=== PATIENT | male | born 1950 | race Caucasian/White ===

== ENCOUNTER 2020-01-11 12:32 | Inpatient (IN) | payer MEDICARE, OTHER, SELFPAY ==
[2020-01-11] VITALS (12 sets, daily range): BP systolic 157–206; BP diastolic 94–123; PULSE 68–87; RESP 14–20; TEMP 36.3–37.1; O2SAT 88–97; BMI 40.6
--- NOTE | 2020-01-11 13:09 | XRR_ITS ---
PROCEDURE INFORMATION: Exam: XR Chest, 1 View Exam date and time: 01/11/2020 1:10 PM Age: 69 years old Clinical indication: Shortness of breath; Additional info: SOB TECHNIQUE: Imaging protocol: XR of the chest Views: 1 view. COMPARISON: CR Chest 1 [place] [id number] 06/21/2018 2:44 PM FINDINGS: Lungs: There is left mid to lower lung increased opacity. Left lung base is not well seen secondary to overlying soft tissue. Pleural space: Left costophrenic angle is not well seen. Pleural effusion cannot be excluded. Heart/Mediastinum: Unremarkable. No cardiomegaly. Bones/joints: Unremarkable. XR/XR chest 1V portable [id number] IMPRESSION: Increased opacity in the left mid to lower lung field. Differential includes pneumonia, atelectasis, and neoplasm.
--- NOTE | 2020-01-11 13:09 | ECG_ITS ---
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 Measurements Intervals [place] Rate: 81 P: 33 MT: 163 QRS: -15 QRSD: 106 T: 34 QT: 387 QTc: 451 Interpretive Statements SINUS RHYTHM WITH OCCASIONAL SUPRAVENTRICULAR PREMATURE COMPLEXES LOW QRS VOLTAGE IN PRECORDIAL LEADS [QRS DEFLECTION < 1.0 mV IN CHEST LEADS] PATTERN CONSISTENT WITH PULMONARY DISEASE INCOMPLETE RIGHT BUNDLE BRANCH BLOCK [90+ ms QRS DURATION, TERMINAL R IN V1/V2, 40+ ms S IN I/aVL/V4/V5/V6] Compared to ECG 06/21/2018 17:52:04 No significant changes Electronically Signed On 01-12-2020 15:52:03 CDT by Germaine Kruse M.D. [id number]
--- NOTE | 2020-01-11 13:22 | W.ED.ARRPALP ---
HPI - Arrhythmia/Palpitations General: Chief Complaint: Arrhythmia/Palpitations Stated Complaint: HEART PALPS Time Seen by Provider: 01/11/20 13:09 Source: patient Mode of arrival: ambulatory Limitations: no limitations History of Present Illness: HPI narrative: 69-year-old male who states that over the last week he has been having palpitations and felt like his heart is skipping. He states he is also been gaining has increased swelling in his lower legs. Patient is hypertensive as well. He denies any chest pain denies any shortness of breath. Patient's oxygen level here is 88% he states that has been going on for some time. He denies any worsening or improving factors. Denies any vomiting. complaint: skipped beats Associated symptoms: Deny nausea or vomiting Review of Systems Const: Denies: fever(s), chills, body aches or change in appetite Eyes: Denies: blurry vision or eye discomfort ENMT: Denies: throat pain or dental pain Card: Reports: palpitations Resp: Denies: dyspnea GI: Denies: abdominal pain, nausea, vomiting or diarrhea : Denies: dysuria Musc: Denies: neck pain or back pain Skin/Breast: Denies: rash Neuro: Denies: headache(s) Psych: Denies: depression Melecio/Lymph: Denies: easy bruising All/Imm: Denies: urticaria PFSH ED PFSH: Medical History Diabetes Eczema Essential hypertension Generalized anxiety disorder Venous (peripheral) insufficiency Social History Smoking and tobacco status: former smoker Alcohol intake: never Physical Exam Const: COMMON NORMALS: no acute distress, patient oriented x3 and healthy appearing HENMT: COMMON NORMALS: normocephalic and atraumatic HEAD & SCALP: normocephalic and atraumatic Eye: COMMON NORMALS: Equal, round and reactive pupils present and EOMs intact bilaterally PUPIL: Yes Equal, round and reactive pupils present Neck/C-Spine: COMMON NORMALS: full ROM and supple Chest: COMMONS NORMALS: normal inspection of the chest and normal palpation of entire chest wall Resp: COMMON NORMALS: normal respiratory effort, No retractions, No use of accessory muscles and clear to auscultation bilaterally AUSCULTATION: clear to auscultation bilaterally Cardio: COMMON NORMALS: regular rate, regular rhythm and No murmurs present (Cardio) RATE: regular rate RHYTHM: regular rhythm GI: COMMON NORMALS: Normal to inspection, nondistended, normoactive bowel sounds present, Soft to palpation, non-tender and no masses PALPATION: Yes Soft to palpation Extremity: COMMON NORMALS: normal to inspection and full ROM NARRATIVE EXTREMITY EXAM: 2+ edema Neuro: COMMON NORMALS: patient oriented x3, moves all extremities and no focal motor deficits Psych: COMMON NORMALS: mental status grossly normal, Normal thought process present and cooperative THOUGHT PROCESS: Normal thought process present Skin: COMMON NORMALS: no rashes or lesions noted and no wounds GENERAL SKIN EXAM: no rashes or lesions noted Course Vital Signs: Vital signs: Vital Signs Temperature 98.8 F 01/11/20 13:00 Pulse Rate 74 01/11/20 13:00 Respiratory Rate 14 01/11/20 13:00 Blood Pressure 197/107 01/11/20 13:00 Pulse Oximetry 88 L 01/11/20 13:00 MDM - Arrhythmia/Palpitations MDM Narrative: Medical decision making narrative: Patient presents here with hypoxemia likely pneumonia. I spoke to hospitalist and will admit. Patient is requiring oxygen here and patient given IV azithromycin and Rocephin. Patient has been stable while in the ER. Lab Data: Labs: Lab Results 01/11/20 01/11/20 01/11/20 Range/Units 13:35 13:35 13:35 WBC 11.5 H (4.0-10.0) 10^3/ uL RBC 5.88 H (4.1-5.3) 10^6/u L Hgb 17.9 H (11.7-16.6) g/dL Hct 56.4 H (42.0-52.0) % MCV 95.9 H (80-94) fL MCH 30.4 (28.0-34.0) pg MCHC 31.7 (30.0-36.0) g/dL RDW 13.5 (12.1-15.1) % Plt Count 238 (130-400) 10^3/c mm MPV 10.1 (7.4-10.4) fL Neut % (Auto) 72.8 % Lymph % (Auto) 11.4 % [place] % (Auto) 8.6 % Eos % (Auto) 3.6 % Baso % (Auto) 1.2 % Neut # (Auto) 8.41 H (1.8-7.7) 10^3/u L Lymph # (Auto) 1.3 (0.8-4.8) 10^3/u L [place] # (Auto) 1.0 H (0.2-0.9) 10^3/u L Eos # (Auto) 0.4 (0.0-0.8) 10^3/u L Baso # (Auto) 0.1 (0.0-0.1) 10^3/u L Nucleated RBC % (a uto) 0 % Nucleated RBCs # 0.0 /100WBC PT 12.80 (12.1-14.9) SECO NDS INR 0.94 (0.8-1.2) D-Dimer 1.27 H (0-0.59) ug/mIFE U Sodium 140 (136-145) mmol/L Potassium 3.9 (3.5-5.1) mmol/L Chloride 98 (98-107) mmol/L Carbon Dioxide 35 H (22-29) mmol/L Anion Gap 10.9 (5-19) BUN 10 (8-23) mg/dL Creatinine 1.1 (0.7-1.2) mg/dL GFR Calculation 66.8 L (90-130) mL/min Glucose 148 H (65-115) mg/dL Calculated Osmolal ity 289 (285-295) mOsm/k g Calcium 9.8 (8.5-10.5) mg/dL Total Bilirubin 0.4 (0.15-1.2) mg/dL AST 16 (0-40) U/L ALT 32 (0-41) U/L Alkaline Phosphata se 71 (40-130) IU/L Troponin T Baselin e (0-15) ng/L Troponin T 120 Min [place] (0-15) ng/L Delta Troponin T (0-10) ABS# NT-Pro-B Natriuret Pep 169 H (0-125) pg/mL Total Protein 7.2 (6.6-8.7) g/dL Albumin 4.0 (3.5-5.2) g/dL Globulin 3.2 (1.3-4.6) g/dL SARS-CoV-2 Ag (Rap id) (Negative) 01/11/20 01/11/20 01/11/20 Range/Units 13:35 14:06 15:32 WBC (4.0-10.0) 10^3/ uL RBC (4.1-5.3) 10^6/u L Hgb (11.7-16.6) g/dL Hct (42.0-52.0) % MCV (80-94) fL MCH (28.0-34.0) pg MCHC (30.0-36.0) g/dL RDW (12.1-15.1) % Plt Count (130-400) 10^3/c mm MPV (7.4-10.4) fL Neut % (Auto) % Lymph % (Auto) % [place] % (Auto) % Eos % (Auto) % Baso % (Auto) % Neut # (Auto) (1.8-7.7) 10^3/u L Lymph # (Auto) (0.8-4.8) 10^3/u L [place] # (Auto) (0.2-0.9) 10^3/u L Eos # (Auto) (0.0-0.8) 10^3/u L Baso # (Auto) (0.0-0.1) 10^3/u L Nucleated RBC % (a uto) % Nucleated RBCs # /100WBC PT (12.1-14.9) SECO NDS INR (0.8-1.2) D-Dimer (0-0.59) ug/mIFE U Sodium (136-145) mmol/L Potassium (3.5-5.1) mmol/L Chloride (98-107) mmol/L Carbon Dioxide (22-29) mmol/L Anion Gap (5-19) BUN (8-23) mg/dL Creatinine (0.7-1.2) mg/dL GFR Calculation (90-130) mL/min Glucose (65-115) mg/dL Calculated Osmolal ity (285-295) mOsm/k g Calcium (8.5-10.5) mg/dL Total Bilirubin (0.15-1.2) mg/dL AST (0-40) U/L ALT (0-41) U/L Alkaline Phosphata se (40-130) IU/L Troponin T Baselin e 19 H (0-15) ng/L Troponin T 120 Min yamila 18.93 H (0-15) ng/L Delta Troponin T -0.07 L (0-10) ABS# NT-Pro-B Natriuret Pep (0-125) pg/mL Total Protein (6.6-8.7) g/dL Albumin (3.5-5.2) g/dL Globulin (1.3-4.6) g/dL SARS-CoV-2 Ag (Rap id) Negative (Negative) Imaging Data^: CXR: Attestation: I personally reviewed and interpreted this imaging study as follows: My impression: [address] [address] XRay Report Signed Patient: Zion Mishra Unit #: [id number] : 1950 Age/Sex: 69 / M ADM Date: 01/11/20 Loc: ER Room/Bed: Attending Dr: Ordering Provider/Ordering MD: Amanda Ugarte MD Date of Service: 01/11/20 Procedure(s): XR chest 1V portable [id number] Accession Number(s): [id number] Report Number: [id number] PROCEDURE INFORMATION: Exam: XR Chest, 1 View Exam date and time: 01/11/2020 1:10 PM Age: 69 years old Clinical indication: Shortness of breath; Additional info: SOB TECHNIQUE: Imaging protocol: XR of the chest Views: 1 view. COMPARISON: CR Chest 1 [place] [id number] 06/21/2018 2:44 PM FINDINGS: Lungs: There is left mid to lower lung increased opacity. Left lung base is not well seen secondary to overlying soft tissue. Pleural space: Left costophrenic angle is not well seen. Pleural effusion cannot be excluded. Heart/Mediastinum: Unremarkable. No cardiomegaly. Bones/joints: Unremarkable. XR/XR chest 1V portable [id number] IMPRESSION: Increased opacity in the left mid to lower lung field. Differential includes pneumonia, atelectasis, and neoplasm. CT Chest: Attestation: I personally reviewed and interpreted this imaging study as follows: Radiologist's impression: [address] [place] [address] CT Scan Report Signed Patient: Zion Mishra Unit #: [id number] : 1950 Age/Sex: 69 / M ADM Date: 01/11/20 Loc: ER Room/Bed: Attending Dr: Ordering Provider/Ordering MD: Amanda Ugarte MD Date of Service: 01/11/20 Procedure(s): CT angio chest PE protcl [id number] Accession Number(s): [id number] Report Number: [id number] PROCEDURE INFORMATION: Exam: CT Angiography Chest With Contrast Exam date and time: 01/11/2020 2:43 PM Age: 69 years old Clinical indication: Shortness of breath; Prior surgery; Surgery date: 6+ months; Surgery type: Gb; Patient HX: SOB x5 days, irregular hr with may 05 stats, positive d-dimer TECHNIQUE: Imaging protocol: Computed tomographic angiography of the chest with intravenous contrast. 3D rendering: MIP and/or 3D reconstructed images were created by the technologist. Radiation optimization: All CT scans at this facility use at least one of these dose optimization techniques: automated exposure control; mA and/or kV adjustment per patient size (includes targeted exams where dose is matched to clinical indication); or iterative reconstruction. Contrast material: OMNIPAQUE 350; Contrast volume: 95 ml; Contrast route: INTRAVENOUS (IV); COMPARISON: CTA Chest-[place] [id number] 02/29/2016 7:06 PM RADIATION DOSE METRICS: Total DLP (mGy-cm): 586.27 FINDINGS: Pulmonary arteries: Normal. No pulmonary emboli. Aorta: Unremarkable. No aortic aneurysm. No aortic dissection. Lungs: See Heart finding. Pleural space: See Heart finding. Heart: Multivessel atherosclerotic disease which involves the coronary arteries. There is a large pericardial fat pad taking up a large portion of the left lower hemithorax. No pleural effusion. There is consolidation along the pericardial fat pad consistent with atelectasis. Underlying pneumonia cannot be excluded. Lymph nodes: Unremarkable. No enlarged lymph nodes. Gallbladder and bile ducts: The gallbladder has been removed. Bones/joints: Unremarkable. No acute fracture. Soft tissues: Unremarkable. CT/CT angio chest PE protcl [id number] IMPRESSION: 1. There is a large left pericardial fat pad with adjacent atelectasis at the left lung base. Underlying pneumonia cannot be excluded. 2. No evidence for pulmonary embolus. EKG Data^: EKG 1: Attestation: I personally reviewed and interpreted this EKG as follows: EKG interpretation date: 01/11/20 EKG interpretation time: 13:55 Interpretation: nsr hr [address] or t wave abnormalities qrs 86 qtc 412 Other EKG comments: Chest X-Ray 01/11/20 13:09 IMPRESSION: Increased opacity in the left mid to lower lung field. Differential includes pneumonia, atelectasis, and neoplasm. Chest CTA 01/11/20 14:22 IMPRESSION: 1. There is a large left pericardial fat pad with adjacent atelectasis at the left lung base. Underlying pneumonia cannot be excluded. 2. No evidence for pulmonary embolus. Radiation Dose CTDIVOL = (mGy): DLP = 586.27 (mGy-cm) Discharge Plan Discharge Patient Disposition: Admitted As Inpatient Clinical Impression: Pneumonia Qualifiers: Pneumonia type: due to unspecified organism Laterality: left Lung location: lower lobe of lung Qualified Code(s): J18.9 - Pneumonia, unspecified organism Condition: Stable Referrals: Annamaria Duke MD [Primary Care Provider] - Coding Level of Care Code ED Bender Helper for g Fwd Exam Comprehensive
[2020-01-11] MEDS: labetalol 5 mg/mL SDV 20mL 10 MG IVP (13:48)
[2020-01-11 13:50] LABS: Basophils # 0.1 10^3/uL (0.0-0.1); Basophils % 1.2 %; Eosinophils # 0.4 10^3/uL (0.0-0.8); Eosinophils % 3.6 %; Hematocrit 56.4 % (42.0-52.0); Hemoglobin 17.9 g/dL (11.7-16.6); Lymphocytes # 1.3 10^3/uL (0.8-4.8); Lymphocytes % 11.4 %; Mean Corpuscular HGB Conc 31.7 g/dL (30.0-36.0); Mean Corpuscular Hemoglobin 30.4 pg (28.0-34.0); Mean Corpuscular Volume 95.9 fL (80-94); Mean Platelet Volume 10.1 fL (7.4-10.4); Monocytes % 8.6 %; Neutrophils # 8.41 10^3/uL (1.8-7.7); Neutrophils % 72.8 %; Nucleated Red Blood Cells % 0 %; Platelet Count 238 10^3/cmm (130-400); Red Blood Count 5.88 10^6/uL (4.1-5.3); Red Cell Distribution Width 13.5 % (12.1-15.1); White Blood Count 11.5 10^3/uL (4.0-10.0)
[2020-01-11] MEDS: cefTRIAXone 1,000 MG in sodium chloride 0.9% (plus) 50 ML 100 MG IV (14:01)
[2020-01-11] MEDS: azithromycin 500 MG in sodium chloride 0.9% 250 ML 250 MG IV (14:02)
[2020-01-11 14:11] LABS: INR 0.94 (0.8-1.2)
[2020-01-11 14:14] LABS: D Dimer 1.27 ug/mIFEU (0-0.59)
[2020-01-11 14:17] LABS: Alanine Aminotransferase 32 U/L (0-41); Alkaline Phosphatase 71 IU/L (40-130); Anion Gap 10.9 (5-19); Aspartate Amino Transferase 16 U/L (0-40); Blood Urea Nitrogen 10 mg/dL (8-23); Calcium 9.8 mg/dL (8.5-10.5); Carbon Dioxide 35 mmol/L (22-29); Chloride 98 mmol/L (98-107); Globulin 3.2 g/dL (1.3-4.6); Glomerular Filtration Rate 66.8 mL/min (90-130); Glucose 148 mg/dL (65-115); NT Pro B Type Natriuretic Pept 169 pg/mL (0-125); Osmolality Calculated 289 mOsm/kg (285-295); Potassium 3.9 mmol/L (3.5-5.1); Sodium 140 mmol/L (136-145); Total Bilirubin 0.4 mg/dL (0.15-1.2); Total Protein 7.2 g/dL (6.6-8.7)
--- NOTE | 2020-01-11 14:22 | CTR_ITS ---
PROCEDURE INFORMATION: Exam: CT Angiography Chest With Contrast Exam date and time: 01/11/2020 2:43 PM Age: 69 years old Clinical indication: Shortness of breath; Prior surgery; Surgery date: 6+ months; Surgery type: Gb; Patient HX: SOB x5 days, irregular hr with may 05 stats, positive d-dimer TECHNIQUE: Imaging protocol: Computed tomographic angiography of the chest with intravenous contrast. 3D rendering: MIP and/or 3D reconstructed images were created by the technologist. Radiation optimization: All CT scans at this facility use at least one of these dose optimization techniques: automated exposure control; mA and/or kV adjustment per patient size (includes targeted exams where dose is matched to clinical indication); or iterative reconstruction. Contrast material: OMNIPAQUE 350; Contrast volume: 95 ml; Contrast route: INTRAVENOUS (IV); COMPARISON: CTA Chest-Pulmonary Emb [id number] 02/29/2016 7:06 PM RADIATION DOSE METRICS: Total DLP (mGy-cm): 586.27 FINDINGS: Pulmonary arteries: Normal. No pulmonary emboli. Aorta: Unremarkable. No aortic aneurysm. No aortic dissection. Lungs: See Heart finding. Pleural space: See Heart finding. Heart: Multivessel atherosclerotic disease which involves the coronary arteries. There is a large pericardial fat pad taking up a large portion of the left lower hemithorax. No pleural effusion. There is consolidation along the pericardial fat pad consistent with atelectasis. Underlying pneumonia cannot be excluded. Lymph nodes: Unremarkable. No enlarged lymph nodes. Gallbladder and bile ducts: The gallbladder has been removed. Bones/joints: Unremarkable. No acute fracture. Soft tissues: Unremarkable. CT/CT angio chest PE protcl [id number] IMPRESSION: 1. There is a large left pericardial fat pad with adjacent atelectasis at the left lung base. Underlying pneumonia cannot be excluded. 2. No evidence for pulmonary embolus. Radiation Dose CTDIVOL = (mGy): DLP = 586.27 (mGy-cm)
[2020-01-11 14:36] LABS: Troponin(5th) Baseline 19 ng/L (0-15)
--- NOTE | 2020-01-11 15:09 | ECG_ITS ---
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 Measurements Intervals [place] Rate: 86 P: 35 [place]: 150 QRS: -3 QRSD: 105 T: 38 QT: 368 QTc: 442 Interpretive Statements SINUS RHYTHM WITH FREQUENT SUPRAVENTRICULAR PREMATURE COMPLEXES INDETERMINATE AXIS LOW QRS VOLTAGE IN PRECORDIAL LEADS INCOMPLETE RIGHT BUNDLE BRANCH BLOCK INFERIOR MYOCARDIAL INFARCTION , PROBABLY OLD [40+ ms Q WAVE AND/OR ST/T ABNORMALITY IN II/aVF] Compared to ECG 01/11/2020 12:59:26 Indeterminate axis now present Myocardial infarct finding now present Electronically Signed On 01-12-2020 16:42:48 CDT by Germaine Kruse M.D. [id number] f
[2020-01-11 15:27] LABS: SARS Covid-2 Antigen Negative (Negative)
[2020-01-11] MEDS: iohexol 350 mg/mL 100 mL Btl IV (15:46)
[2020-01-11 16:09] LABS: Troponin 5 2HR 18.93 ng/L (0-15)
[2020-01-11 16:13] LABS: Troponin 5 2HR Delta -0.07 ABS# (0-10)
--- NOTE | 2020-01-11 16:29 | ECG_ITS ---
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 Measurements Intervals [place] Rate: 78 P: 39 MS: 144 QRS: -16 QRSD: 110 T: 46 QT: 387 QTc: 441 Interpretive Statements SINUS RHYTHM WITH OCCASIONAL SUPRAVENTRICULAR PREMATURE COMPLEXES LOW QRS VOLTAGE IN PRECORDIAL LEADS [QRS DEFLECTION < 1.0 mV IN CHEST LEADS] INCOMPLETE RIGHT BUNDLE BRANCH BLOCK [90+ ms QRS DURATION, TERMINAL R IN V1/V2, 40+ ms S IN I/aVL/V4/V5/V6] Compared to ECG 01/11/2020 13:55:35 Indeterminate axis no longer present Myocardial infarct finding no longer present Electronically Signed On 01-12-2020 15:50:31 CDT by Germaine Kruse M.D. [id number]
--- NOTE | 2020-01-11 18:32 | P.HP_ITS ---
Providers/Chief Complaint Admitting Physician: Fernando Londono MD Primary Care Provider: Annamaria Duke MD Chief Complaint: HEART PALPS History of Present Illness Zion Mishra is a 69 year old male with past medical history of uncontrolled hypertension, COPD, type 2 diabetes mellitus, eczema on chronic steroids with prednisone 5 to 10 mg for at the least last 5 months presented to the ER today because of occasional palpitations going on for last 4 days. He states he would put on his pulse oximetry and would notice irregular heartbeat with occasional skipped beats. He denies of having any dizziness, nausea, vomiting, confusion, falls, headache, dizziness, flulike symptoms, sick contacts, exposure to COVID- 19 patients. In the ER he was found to be mildly hypoxic so blood work was done which showed elevated d-dimer so CTA chest was done which showed a possible pneumonic patch in left lower zone so hospitalist service was asked to admit. His blood work in the ER showed a white count of 11.5, hemoglobin of 17.9, platelet count 238, d-dimer of 1.27, sodium of 140, carbon dioxide of 35 on BMP, creatinine of 1.1, normal liver function tests, baseline troponin of 19, rapid COVID test was negative. CTA chest was done which showed large left pericardial fat pad with adjacent atelectasis at left lung base with possible underlying pneumonia without any apparent embolism. Review of Systems General: Reports: 10 or more systems reviewed and unremarkable except in HPI and below Const: Denies: fever(s), chills, body aches, change in appetite, change in weight, malaise, night sweats, diaphoresis, change in sleep pattern, daytime sleepiness or snoring Eyes: Denies: change in vision, blurry vision, photophobia, eye discomfort or eye discharge ENMT: Denies: throat pain, enlarged tonsils, hoarseness, mouth pain, oral sores, dry mouth, tinnitus, nasal congestion or post nasal drip Card: Denies: chest pain, palpitations, irregular heart rhythm, edema, swelling of feet/ankles, lightheadedness, syncope, pre-syncope, dyspnea on exertion, orthopnea, leg pain with exertion or acrocyanosis Resp: Denies: dyspnea, productive cough, non-productive cough, wheezing, stridor, pain on inspiration, change in phlegm color, hemoptysis or chest congestion GI: Denies: abdominal pain, nausea, vomiting, hematemesis, coffee ground emesis, dysphagia, heartburn, diarrhea, constipation, bloating, GI cramping, change in bowel habits, pain on defecation, hematochezia or melena : Denies: flank pain, difficulty urinating, dysuria, urinary frequency, urinary urgency, urinary hesitancy, urinary dribbling, difficulty starting urination, change in urine stream, nocturia or hematuria Musc: Denies: neck pain, back pain, extremity pain, joint pain, joint swelling, joint redness, joint stiffness or limited range of motion Neuro: Denies: headache(s), numbness in extremities, weakness in extremities, sensory changes, lack of coordination, difficulty walking, frequent falls, dizziness, vertigo, confusion, Slurred speech present, difficulty communicating thoughts or seizure-like activity Psych: Denies: anxiety, depression, mood swings, panic attacks, hopelessness or irritability Endo: Denies: polyuria, polydipsia, tired all the time, cold intolerance, excessive sweating, flushing or heat intolerance Melecio/Lymph: Denies: easy bruising or easy bleeding All/Imm: Denies: tongue swelling, facial swelling or acute wheezing Medications/Allergies Home Medications Medication Instructions Recorded Confirmed Last Taken Type clonidine HCl 0.3 mg tablet 0.3 mg PO TID 07/17/19 01/11/20 01/11/20 History doxepin 10 mg capsule 10 mg PO BID 07/17/19 01/11/20 Unknown History metoprolol tartrate 100 mg tablet 50 mg PO BID tab 07/17/19 01/11/20 01/11/20 History 25 mg prednisone 10 mg tablet 10 mg PO BID 30 Days #60 tab 07/17/19 01/11/20 01/11/20 Rx 5 mg tamsulosin 0.4 mg capsule 0.4 mg PO DAILY 07/17/19 01/11/20 Unknown History furosemide 40 mg tablet 40 mg PO BID 30 Days #60 tab 09/02/19 01/11/20 01/10/20 Rx potassium chloride 20 mEq 20 meq PO BID 30 Days #60 tab 09/02/19 01/11/20 01/10/20 Rx tablet,extended release albuterol sulfate 90 mcg/actuation 2 puff INHALATION Q6H PRN #8 gm 10/02/19 01/11/20 Unknown Rx aerosol inhaler alprazolam 1 mg tablet 1 mg PO QID PRN 30 Days #95 tab 12/24/19 01/11/20 01/11/20 09:00 Rx nifedipine 30 mg PO BID 01/11/20 01/11/20 01/11/20 History 30 mg Allergies Allergy/AdvReac Type Severity Reaction Status Date / Time No Known Allergies Allergy Verified 01/11/20 13:50 PFSH Acute PFSH: Medical History Diabetes Eczema Essential hypertension Generalized anxiety disorder Venous (peripheral) insufficiency Surgical History (Updated 01/11/20 @ 18:38 by Fernando Londono MD) History of cholecystectomy History of cystoscopy Social History Smoking and tobacco status: former smoker Alcohol intake: never Vitals/I&O/Wt Last Vital Signs Temp 98.8 F 01/11/20 13:00 Pulse 68 01/11/20 17:06 Resp 17 01/11/20 17:06 BP 197/123 01/11/20 17:06 Pulse Ox 91 01/11/20 17:06 Weight last 48 hrs Weight 136.078 kg Physical Exam Narrative: EXAM NARRATIVE: General: No acute distress, AO x3, morbidly obese Skin: Multiple maculopapular rash present on both of his arms and chest without any crusting, secretion or bleeding. HEENT: PERRLA, pupils bilaterally equal and reactive Chest: Normal vesicular breath sounds, no added sounds, equal good air entry bilaterally CVS: S1-S2 regular, no murmurs, no tachycardia, no gallops, no rubs Abdomen: Soft, nontender, no organomegaly, bowel sounds present Neuro: No focal deficits, no facial deformity, AO x3, power 5/5 in all limbs Data : 01/11/20 13:35 01/11/20 13:35 Micro: Microbiology 01/11/20 13:35 Blood Culture - Preliminary Blood SPECIMEN COLLECTED 01/11/20 13:38 Blood Culture - Preliminary Blood SPECIMEN COLLECTED A&P Assessment and plan (1) Essential hypertension: Status: Acute (2) Diabetes: Status: Acute Qualifiers: Diabetes mellitus type: type 2 Diabetes mellitus long term acute care registered nurse insulin use: without long term acute care registered nurse use Diabetes mellitus complication status: without complicati on Qualified Code(s): E11.9 - Type 2 diabetes mellitus without complications (3) Pneumonia: Status: Acute Qualifiers: Laterality: left Lung location: lower lobe of lung Pneumonia type: due to unspecified organism Qualified Code(s): J18.9 - Pneumonia, unspecified org anism (4) Palpitation: Status: Acute (5) Hypoxia: Status: Acute Additional A&P Information Hypoxia due to possible pneumonia: Possible pneumonia on the left side versus atelectasis. Possible pericardial fat versus pleural effusion. Check proBNP, procalcitonin, sputum Gram stain, blood culture, urinalysis, urine culture, lactate, echocardiogram, ultrasound left chest. If pleural effusion is present can consult pulmonology for thoracocentesis. For now start patient on treatment for community-acquired pneumonia with azithromycin and ceftriaxone. DuoNebs every 6 hours. Oxygen supplementation keeping saturation over 90%. Type 2 diabetes mellitus: Insulin sliding scale. Hypertension: Uncontrolled in the past. Continue home medications. Goal blood pressure less than 140/90 mmHg. Palpitations: Cannot rule out A. fib given possible PATRICIA. Telemetry. Most likely should be discharged on event monitor. Eczema: Discussed in detail with patient regarding harmful effects of prednisone for a long time. For now we will hold off. Patient does not seem to be in adrenal crisis as blood pressure is running on the higher side. Full code. Carb consistent cardiac diet. Lovenox for DVT prophylaxis Attestations Medical Necessity Statement*: More than 2 midnights for community-acquired pneumonia, hypoxia, palpitation Time Spent in Patient Care: Greater than 35 minutes Coding Level of Care Code Acute Taker Off for [facility] Fwd Diagnoses Essential hypertension I10 Diabetes E11.9 Diabetes mellitus type: type 2 Diabetes mellitus long term acute care registered nurse insulin use: without fpc use Diabetes mellitus complication status: without complication Pneumonia J18.9 Laterality: left Lung location: lower lobe of lung Pneumonia type: due to unspecified organism Palpitation R00.2 Hypoxia R09.02
--- NOTE | 2020-01-11 18:34 | PC.NURSE ---
PT REPORTS TALKING HALF OF HIS MORNING DOSES OF MEDS ONCE A DAY, AND NOT THE WAY THEY ARE PRESCRIBED. TEACHING DONE ON HIS MEDICATIONS AND WHAT THEY ARE FOR. PT LAUGHS AND VERBALIZES UNDERSTANDING. PT ALSO NOTED TAKING HIS OXYGEN OFF AD JUAN LUIS, THOUGH INSTRUCTED NOT TO TAKE IT OFF.
[2020-01-11] MEDS: hyDRALAzine 20 mg/mL INJ 1 mL 10 MG IVP (18:38)
--- NOTE | 2020-01-11 18:38 | PC.NURSE ---
I reported the high bp to the nurses. 206/107
[2020-01-11] MEDS: potassium chloride ER 10 mEq Tablet 20 MEQ PO (18:56)
[2020-01-11] MEDS: FUROsemide 40 mg Tablet PO (18:56)
[2020-01-11] MEDS: NIFEdipine ER (24 hr) 30 mg Tablet PO (18:56)
[2020-01-11] MEDS: doxepin 10 mg Capsule PO (18:56)
[2020-01-11] MEDS: enoxaparin 40 mg/0.4 mL Syringe SUBCUT (18:56)
[2020-01-11] MEDS: famotidine 20 mg/2 mL INJ IVP (18:56)
--- NOTE | 2020-01-11 19:09 | ECG_ITS ---
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 Measurements Intervals [place] Rate: 86 P: 42 NE: 145 QRS: -24 QRSD: 101 T: -7 QT: 365 QTc: 437 Interpretive Statements SINUS RHYTHM WITH OCCASIONAL SUPRAVENTRICULAR PREMATURE COMPLEXES LOW QRS VOLTAGE IN PRECORDIAL LEADS [QRS DEFLECTION < 1.0 mV IN CHEST LEADS] INCOMPLETE RIGHT BUNDLE BRANCH BLOCK POSSIBLE ANTERIOR MYOCARDIAL INFARCTION, PROBABLY OLD INFERIOR MYOCARDIAL INFARCTION, OF INDETERMINATE AGE Compared to ECG 01/11/2020 15:27:19 Myocardial infarct finding now present Electronically Signed On 01-12-2020 16:38:05 CDT by Germaine Kruse M.D. [id number]
[2020-01-11 19:23] LABS: Influenza A by IFA Negative (Negative); Influenza B by IFA Negative (Negative)
[2020-01-11] MEDS: budesonide 0.5 mg/2 mL Neb INHALATION ×2 (20:39)
[2020-01-11] MEDS: ipratropium-albuterol 3 mL Neb INHALATION (20:39)
[2020-01-11] MEDS: cloNIDine 0.1 mg Tablet 0.3 MG PO (20:44)
[2020-01-11] MEDS: sodium chloride 0.9% 1,000 ML 75 ML IV (20:45)
[2020-01-11 21:00] LABS: Troponin 5 6HR 18.49 ng/L (0-15)
[2020-01-11 21:06] LABS: Troponin 5 6HR Delta -0.51 ng/L (0-12)
[2020-01-11 21:10] LABS: NT Pro B Type Natriuretic Pept 179 pg/mL (0-125); Procalcitonin 0.05 ng/mL (0-0.5)
[2020-01-11 21:11] LABS: Thyroid Stimulating Hormone 2.14 uIU/mL (0.27-4.20)
[2020-01-11 21:21] LABS: Iron 60 ug/dL (59-158)
[2020-01-11 21:51] LABS: Percent Saturation 20.7 % (20-50); Total Iron Binding Capacity 289 mcg/dl; Unsaturated Iron Binding 229 ug/dL (112-347)
[2020-01-12] VITALS (9 sets, daily range): BP systolic 114–169; BP diastolic 65–90; PULSE 85–110; RESP 14–24; TEMP 36.5–37.1; O2SAT 87–93
[2020-01-12 06:26] LABS: Basophils # 0.1 10^3/uL (0.0-0.1); Eosinophils # 0.4 10^3/uL (0.0-0.8); Hematocrit 56.8 % (42.0-52.0); Hemoglobin 18.4 g/dL (11.7-16.6); Lymphocytes # 1.6 10^3/uL (0.8-4.8); Lymphocytes % 13.5 %; Mean Corpuscular HGB Conc 32.4 g/dL (30.0-36.0); Mean Corpuscular Volume 95.8 fL (80-94); Mean Platelet Volume 10.3 fL (7.4-10.4); Monocytes # 1.1 10^3/uL (0.2-0.9); Monocytes % 9.5 %; Neutrophils % 71.3 %; Nucleated Red Blood Cells % 0 %; Platelet Count 227 10^3/cmm (130-400); Red Blood Count 5.93 10^6/uL (4.1-5.3); Red Cell Distribution Width 13.6 % (12.1-15.1)
[2020-01-12] MEDS: famotidine 20 mg/2 mL INJ IVP (06:48)
[2020-01-12 06:50] LABS: Alanine Aminotransferase 33 U/L (0-41); Albumin Level 3.9 g/dL (3.5-5.2); Alkaline Phosphatase 74 IU/L (40-130); Anion Gap 15.1 (5-19); Aspartate Amino Transferase 14 U/L (0-40); Blood Urea Nitrogen 7 mg/dL (8-23); Calcium 8.4 mg/dL (8.5-10.5); Carbon Dioxide 29 mmol/L (22-29); Chloride 97 mmol/L (98-107); Globulin 3.7 g/dL (1.3-4.6); Glomerular Filtration Rate 84.2 mL/min (90-130); Glucose 160 mg/dL (65-115); Osmolality Calculated 285 mOsm/kg (285-295); Potassium 3.1 mmol/L (3.5-5.1); Sodium 138 mmol/L (136-145); Total Bilirubin 0.6 mg/dL (0.15-1.2); Total Protein 7.6 g/dL (6.6-8.7)
--- NOTE | 2020-01-12 07:26 | PC.NURSE ---
sitting up in chair, oxygen tubing found on floor oxygen saturation 90-91% on RA, placed on 2L NC, telemetry placed per physician orders, denies pain, cough, or shortness of breath. discussed plan of care, verbalized understanding, reports, I want to go home. Found 1 tablet of what I believe is potassium on bedside table, placed in appropriate waste. Call light left in reach.
[2020-01-12 07:37] LABS: Estmated Average Glucose 154
[2020-01-12] MEDS: NIFEdipine ER (24 hr) 30 mg Tablet PO (08:29)
[2020-01-12] MEDS: metoprolol tartrate 50 mg Tablet PO (08:30)
[2020-01-12] MEDS: azithromycin 250 mg Tablet 500 MG PO (08:30)
[2020-01-12] MEDS: FUROsemide 40 mg Tablet PO (08:30)
[2020-01-12] MEDS: doxepin 10 mg Capsule PO (08:30)
[2020-01-12] MEDS: potassium chloride ER 10 mEq Tablet 20 MEQ PO (08:31)
[2020-01-12] MEDS: sodium chloride 0.9% 1,000 ML 75 ML IV (08:31)
[2020-01-12] MEDS: cloNIDine 0.1 mg Tablet 0.3 MG PO (08:31)
[2020-01-12] MEDS: tamsulosin 0.4 mg Capsule PO (08:31)
--- NOTE | 2020-01-12 10:33 | PC.CHAP ---
Pastoral Care Encounter/Spiritual Assessment Type of Contact [] Declined nursing techn visit [] Patient/Family/Request visit [] Outpatient visit [] Follow-up visit [] Physician referral [] Code/Alert [x] Routine visit [] Staff referral [] Actively dying [] Patient sleeping [] Family support [] [] Out of room [] Palliative care [] [] Receiving care in room [] Pre-surgical visit [] Trauma [] Long length of stay [] ICU visit [] Other: Relational/Emotional Strength [] Patient feels connected with others/family/visitors/staff [] Distress [] Loneliness/isolation [] Abandonment Spirituality of Patient [] Person of Laura [] Attends Jew of their Laura [] Believes in Prayer [] Reads Bible or Caodaism materials [] There are Spiritual issues to be addressed Medical Concierge Interventions [x] Prayer [x] Active listening [x] Non-anxious presence [x] Spiritual/emotional support [] Crisis/trauma care [] Spiritual counseling [] Bereavement support [] Provided bereavement packet [] Provided Bible/devotional materials [] Provided toy/stuffed animal, coloring book to patient or family member [] Provided Communion [] Anointing/[place] [] Salvation [x] Completed spiritual assessment [] Other: Impact on Illness or Injury [] Angry [] Fearful [] Anxious [] Often cries [] Exhaustion [] Unable to work [] Unable to attend judaism [] Unable to walk/stand [] Unable to read [] Unable to drive [] Unable to eat/drink [] Unable to sleep [] Unable to be with family [] Patient intubated [] Other: Summary patient feeling palps are much better. Time spent with patient 10 min
--- NOTE | 2020-01-12 10:35 | PC.CHAP ---
Pastoral Care Encounter/Spiritual Assessment Type of Contact [] Declined cage manager visit [] Patient/Family/Request visit [] Outpatient visit [] Follow-up visit [] Physician referral [] Code/Alert [x] Routine visit [] Staff referral [] Actively dying [] Patient sleeping [] Family support [] [] Out of room [] Palliative care [] [] Receiving care in room [] Pre-surgical visit [] Trauma [] Long length of stay [] ICU visit [] Other: Relational/Emotional Strength [] Patient feels connected with others/family/visitors/staff [] Distress [] Loneliness/isolation [] Abandonment Spirituality of Patient [] Person of Laura [] Attends Oriental Orthodox of their Laura [] Believes in Prayer [] Reads Bible or Worship materials [] There are Spiritual issues to be addressed Hospital Sales Representative Interventions [x] Prayer [x] Active listening [x] Non-anxious presence [x] Spiritual/emotional support [] Crisis/trauma care [] Spiritual counseling [] Bereavement support [] Provided bereavement packet [] Provided Bible/devotional materials [] Provided toy/stuffed animal, coloring book to patient or family member [] Provided Communion [] Anointing/[place] [] Salvation [x] Completed spiritual assessment [] Other: Impact on Illness or Injury [] Angry [] Fearful [] Anxious [] Often cries [] Exhaustion [] Unable to work [] Unable to attend jain [] Unable to walk/stand [] Unable to read [] Unable to drive [] Unable to eat/drink [] Unable to sleep [] Unable to be with family [] Patient intubated [] Other: Summary Patient understands results of tests, just needs next step... what actions are to be taken Time spent with patient 10 min
--- NOTE | 2020-01-12 13:45 | PM.DCS ---
Discharge Providers Date of Admission: 01/11/20 16:18 Date of Discharge: January 12, 2020 Attending Provider at Admission: Fernando Londono MD Attending Provider at Discharge: Flakito Mcgregor MD Primary Care Provider: Annamaria Duke MD Diagnoses at Discharge Discharge Diagnosis (1) Essential hypertension: Status: Acute (2) Diabetes: Status: Acute Qualifiers: Diabetes mellitus complication status: without complication Diabetes mellitus penitentiary insulin use: without intermediate designer use Diabetes mellitus type: type 2 Qualified Code(s): E11.9 - Type 2 diabetes mellitus without complications (3) Pneumonia: Status: Acute Qualifiers: Laterality: left Lung location: lower lobe of lung Pneumonia type: due to unspecified organism Qualified Code(s): J18.9 - Pneumonia, unspecified organism (4) Palpitation: Status: Acute (5) Hypoxia: Status: Acute Reason for Visit Reason for Visit: HEART PALPS Hospital Course Discharge Summary: This is a 69-year-old male with a past medical history of uncontrolled hypertension, COPD, type 2 diabetes mellitus, eczema on chronic steroids who presents to [facility] due to complaints of irregular heartbeat In the emergency room, patient had a CTA of the chest which did not show any acute embolism, rapid COVID was negative, patient was found to be hypoxic requiring up to 3 L nasal cannula, telemetry had no acute events, EKG shows sinus rhythm with occasional supraventricular premature complexes, incomplete RBBB, low voltage QRS, CTA of the chest showed large left pericardial fat pad with adjacent atelectasis at the left lung base, pneumonia could not be excluded. Given patient's hypoxia, he was admitted for left lower lobe pneumonia Patient was admitted to the general medical floors, received IV hydration, oxygen therapy, antibiotic therapy, clinically improved, denied any significant symptomatology with ambulation, was ready for discharge within 24 hours, culture so far have been unremarkable. Patient was discharged on 5 remaining days of Levaquin, oxygen therapy 3 L nasal cannula, with close follow-up with primary care provider in 1 week. Patient will likely require repeat chest x-ray in 6 months. Patient's COVID-19 testing was negative, influenza negative. Patient was also found to have polycythemia on admission, hemoglobin as high as 18.4, also seen in the past, it is certainly possible that patient's hypoxia could be secondary to chronic COPD although patient states that he quit smoking over 10 years ago, erythropoietin levels are pending, which will require outpatient follow-up and consideration of referral to hematology oncology to evaluate for polycythemia vera For his complaints of irregular heart rate, during his hospital admission, did have episodes of sinus tachycardia, no A. fib events, no chest pain, no lightheadedness, no dizziness, TSH 2.14, BNP 179. On admission patient had no significant ST-T wave changes on EKG, troponins are as high as 18.49, no significant delta troponin, no complaints of chest pain, echocardiogram was overall a poor quality study due to ultrasonic window and body habitus. I have discharged the patient on aspirin, statin, instructions to come back to emergency room if she were to have chest pain, and he will require an outpatient follow-up with his primary care provider. Patient was also discharged on a 2-week event monitor, to monitor for arrhythmia events. Physical Exam Const: COMMON NORMALS: no acute distress and patient oriented x3 HENMT: COMMON NORMALS: normocephalic HEAD & SCALP: normocephalic Neck/C-Spine: COMMON NORMALS: no JVD Resp: COMMON NORMALS: normal respiratory effort, No retractions, No use of accessory muscles and clear to auscultation bilaterally AUSCULTATION: clear to auscultation bilaterally Cardio: COMMON NORMALS: no JVD, regular rate, regular rhythm, S1 normal heart sound present and S2 normal heart sound present RATE: regular rate RHYTHM: regular rhythm HEART SOUNDS: S1 normal heart sound present and S2 normal heart sound present GI: COMMON NORMALS: Normal to inspection, nondistended, normoactive bowel sounds present, Soft to palpation, non-tender, No hepatosplenomegaly present, no masses and no bruits PALPATION: Yes Soft to palpation and Yes No hepatosplenomegaly present Extremity: COMMON NORMALS: capillary refill normal, no clubbing, cyanosis or edema, no calf tenderness and no pedal edema Neuro: COMMON NORMALS: patient oriented x3 Psych: COMMON NORMALS: mental status grossly normal Discharge Data Data Completed and Pending: Completed Studies During Hospitalization Category Date Time Status CT angio chest PE protcl [id number] Urge nt Cat Scan 01/11/20 14:22 Completed XR chest 1V josh ble [id number] Stat Exams 01/11/20 13:09 Completed CV echo complete* [id number] Routine Ultrasound 01/12/20 18:38 [place] chest [id number] Ro utine Ultrasound 01/12/20 18:38 Completed Pending at discharge Category Date Time Status Blood Culture Sta t Lab 01/11/20 13:[address] at Lab 01/12/20 06:00 Received Legionella Antige n STAT Routine Lab 01/11/20 18:38 Ordered MRSA by PCR Routi ne Lab 01/11/20 18:48 Received Sputum Culture an d Gram Stain Stat Lab 01/11/20 18:43 Uncollected Labs from last 24 hours 01/12/20 01/12/20 01/12/20 06:00 06:00 06:00 WBC RBC Hgb Hct MCV MCH MCHC RDW Plt Count MPV Neut % (Auto) Lymph % (Auto) [place] % (Auto) Eos % (Auto) Baso % (Auto) Neut # (Auto) Lymph # (Auto) [place] # (Auto) Eos # (Auto) Baso # (Auto) Nucleated RBC % (a uto) Nucleated RBCs # PT INR D-Dimer Sodium 138 Potassium 3.1 L Chloride 97 L Carbon Dioxide 29 Anion Gap 15.1 BUN 7 L Creatinine 0.9 GFR Calculation 84.2 L Glucose 160 H Estimat Average Gl ucose 154 Hemoglobin A1c 7.0 H Calculated Osmolal ity 285 Calcium 8.4 L Iron TIBC % Saturation Unsat Iron Binding Erythropoietin Pending Total Bilirubin 0.6 AST 14 ALT 33 Alkaline Phosphata se 74 Troponin T Baselin e Troponin T 120 Min [place] Delta Troponin T Troponin T Hi Sens 6Hr Troponin T Hi Sens 6Hr Delta NT-Pro-B Natriuret Pep Total Protein 7.6 Albumin 3.9 Globulin 3.7 Procalcitonin TSH Influenza Type A A g Influenza Type B A g SARS-CoV-2 Ag (Rap id) 01/12/20 01/11/20 01/11/20 06:00 20:19 20:19 WBC 12.0 H RBC 5.93 H Hgb 18.4 H Hct 56.8 H MCV 95.8 H MCH 31.0 MCHC 32.4 RDW 13.6 Plt Count 227 MPV 10.3 Neut % (Auto) 71.3 Lymph % (Auto) 13.5 [place] % (Auto) 9.5 Eos % (Auto) 3.0 Baso % (Auto) 1.0 Neut # (Auto) 8.60 H Lymph # (Auto) 1.6 [place] # (Auto) 1.1 H Eos # (Auto) 0.4 Baso # (Auto) 0.1 Nucleated RBC % (a uto) 0 Nucleated RBCs # 0.0 PT INR D-Dimer Sodium Potassium Chloride Carbon Dioxide Anion Gap BUN Creatinine GFR Calculation Glucose Estimat Average Gl ucose Hemoglobin A1c Calculated Osmolal ity Calcium Iron 60 TIBC 289 % Saturation 20.7 Unsat Iron Binding 229 Erythropoietin Total Bilirubin AST ALT Alkaline Phosphata se Troponin T Baselin e Troponin T 120 Min [place] Delta Troponin T Troponin T Hi Sens 6Hr Troponin T Hi Sens 6Hr Delta NT-Pro-B Natriuret Pep 179 H Total Protein Albumin Globulin Procalcitonin 0.05 TSH 2.14 Influenza Type A A g Influenza Type B A g SARS-CoV-2 Ag (Rap id) 01/11/20 01/11/20 01/11/20 20:19 18:48 15:32 WBC RBC Hgb Hct MCV MCH MCHC RDW Plt Count MPV Neut % (Auto) Lymph % (Auto) [place] % (Auto) Eos % (Auto) Baso % (Auto) Neut # (Auto) Lymph # (Auto) [place] # (Auto) Eos # (Auto) Baso # (Auto) Nucleated RBC % (a uto) Nucleated RBCs # PT INR D-Dimer Sodium Potassium Chloride Carbon Dioxide Anion Gap BUN Creatinine GFR Calculation Glucose Estimat Average Gl ucose Hemoglobin A1c Calculated Osmolal ity Calcium Iron TIBC % Saturation Unsat Iron Binding Erythropoietin Total Bilirubin AST ALT Alkaline Phosphata se Troponin T Baselin e Troponin T 120 Min [place] 18.93 H Delta Troponin T -0.07 L Troponin T Hi Sens 6Hr 18.49 H Troponin T Hi Sens 6Hr Delta -0.51 L NT-Pro-B Natriuret Pep Total Protein Albumin Globulin Procalcitonin TSH Influenza Type A A g Negative Influenza Type B A g Negative SARS-CoV-2 Ag (Rap id) 01/11/20 01/11/20 01/11/20 14:06 13:35 13:35 WBC RBC Hgb Hct MCV MCH MCHC RDW Plt Count MPV Neut % (Auto) Lymph % (Auto) [place] % (Auto) Eos % (Auto) Baso % (Auto) Neut # (Auto) Lymph # (Auto) [place] # (Auto) Eos # (Auto) Baso # (Auto) Nucleated RBC % (a uto) Nucleated RBCs # PT INR D-Dimer Sodium 140 Potassium 3.9 Chloride 98 Carbon Dioxide 35 H Anion Gap 10.9 BUN 10 Creatinine 1.1 GFR Calculation 66.8 L Glucose 148 H Estimat Average Gl ucose Hemoglobin A1c Calculated Osmolal ity 289 Calcium 9.8 Iron TIBC % Saturation Unsat Iron Binding Erythropoietin Total Bilirubin 0.4 AST 16 ALT 32 Alkaline Phosphata se 71 Troponin T Baselin e 19 H Troponin T 120 Min [place] Delta Troponin T Troponin T Hi Sens 6Hr Troponin T Hi Sens 6Hr Delta NT-Pro-B Natriuret Pep 169 H Total Protein 7.2 Albumin 4.0 Globulin 3.2 Procalcitonin TSH Influenza Type A A g Influenza Type B A g SARS-CoV-2 Ag (Rap id) Negative 01/11/20 01/11/20 13:35 13:35 WBC 11.5 H RBC 5.88 H Hgb 17.9 H Hct 56.4 H MCV 95.9 H MCH 30.4 MCHC 31.7 RDW 13.5 Plt Count 238 MPV 10.1 Neut % (Auto) 72.8 Lymph % (Auto) 11.4 [place] % (Auto) 8.6 Eos % (Auto) 3.6 Baso % (Auto) 1.2 Neut # (Auto) 8.41 H Lymph # (Auto) 1.3 [place] # (Auto) 1.0 H Eos # (Auto) 0.4 Baso # (Auto) 0.1 Nucleated RBC % (a uto) 0 Nucleated RBCs # 0.0 PT 12.80 INR 0.94 D-Dimer 1.27 H Sodium Potassium Chloride Carbon Dioxide Anion Gap BUN Creatinine GFR Calculation Glucose Estimat Average Gl ucose Hemoglobin A1c Calculated Osmolal ity Calcium Iron TIBC % Saturation Unsat Iron Binding Erythropoietin Total Bilirubin AST ALT Alkaline Phosphata se Troponin T Baselin e Troponin T 120 Min [place] Delta Troponin T Troponin T Hi Sens 6Hr Troponin T Hi Sens 6Hr Delta NT-Pro-B Natriuret Pep Total Protein Albumin Globulin Procalcitonin TSH Influenza Type A A g Influenza Type B A g SARS-CoV-2 Ag (Rap id) Vitals: Last Vital Signs Temp 98.8 F 01/12/20 12:05 Pulse 110 H 08/10/20 12:05 Resp 24 H 01/12/20 12:05 BP 168/90 01/12/20 12:05 Pulse Ox 87 L 01/12/20 13:06 Discharge Plan Discharge Patient Disposition: Home Condition: Stable Prescriptions: New Levaquin 750 mg tablet 750 mg PO DAILY 5 Days Qty: 5 RF: 0 aspirin 81 mg tablet,delayed release (DR/EC) 81 mg PO DAILY 30 Days Qty: 30 RF: 0 atorvastatin 40 mg tablet 40 mg PO DAILY 30 Days Qty: 30 RF: 0 Continued doxepin 10 mg capsule 10 mg PO BID RF: 0 metoprolol tartrate 100 mg tablet 50 mg PO BID RF: 0 tamsulosin 0.4 mg capsule 0.4 mg PO DAILY RF: 0 clonidine HCl 0.3 mg tablet 0.3 mg PO TID RF: 0 alprazolam 1 mg tablet 1 mg PO QID PRN (Reason: anxiety) 30 Days Qty: 95 RF: 5 furosemide 40 mg tablet 40 mg PO BID 30 Days Qty: 60 RF: 8 albuterol sulfate [Proventil HFA] 90 mcg/actuation HFA aerosol inhaler 2 puff INHALATION Q6H PRN (Reason: shortness of breath or wheezing) Qty: 8 RF: 5 nifedipine 30 mg tablet extended release 24hr 30 mg PO BID RF: 0 Changed potassium chloride 20 mEq tablet extended release 30 meq PO BID 30 Days Qty: 60 RF: 11 Held prednisone 10 mg tablet 10 mg PO BID 30 Days Qty: 60 RF: 5 Hold Instructions: Resume on 01/26/20. Discharge Orders: Discharge Order (Routine); Ordered 01/12/20 Ordered By: Flakito Mcgregor Other Ambulatory Orders: Complete Blood Count w/Auto (Routine) Timeframe: 1 Week Location: Determined by Patient Ordered By: Flakito Mcgregor Comprehensive Metabolic Panel (Routine) Timeframe: 1 Week Facility: [facility] - Location: Lab - Main Lab Ordered By: Flakito Mcgregor CA 2 week event monitor (Routine) Timeframe: 1 Week Facility: [facility] - Location: Cardiac Diagnostic Laboratory Ordered By: Flakito Mcgregor DME: Oxygen (Order) Location: None Selected Ordered By: Flakito Mcgregor [place] [facility] [place] Annamaria Duke MD [Primary Care Provider] - 01/15/20 10:00 am Discharge Diet: Cardiac Discharge Activity: Resume usual activity Patient Instructions: Aspirin (By mouth), Atorvastatin (By mouth), Levofloxacin (By mouth), Heart Palpitations, Viral Pneumonia (DC), Heart Healthy Diet (DC) Activity Restrictions/Additional Instructions: -Please follow-up with primary care provider in 1 week -Please take antibiotics for pneumonia -Please repeat chest x-ray in 6 weeks -I have discharged you on a event monitor for the next 2 weeks for palpitations -If you were to have chest pain or shortness of breath or palpitations please come back to the emergency room -Primary care physician to follow-up on EPO levels and echo Discharge Attestations Time Spent in Discharge Care*: less than 30 min Quality Metrics Clinical Quality Measures During this hospital stay, did patient experience: None Coding Level of Care Code 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
--- NOTE | 2020-01-12 14:36 | PC.NURSE ---
Discharge instructions provided, verbalized understanding, denies further questions or concerns.
--- NOTE | 2020-01-12 18:38 | USCV_ITS ---
Zion Mishra Age: 69 Gender: M : 1950 Exam Date: 01/12/2020 06:35 Ordering Phys: Fernando Londono MD Technologist: Heather Cornelius [place] [facility] [place]ication: PULM HTN AND DD BP: / HR: 95 Rhythm: Sinus Technical Quality: VERY TECH DIFFICULT DUE TO BODY HABITUS MEASUREMENTS (Male / Female) Normal Values 2D ECHO LV Diastolic Diameter PLAX 3.5 cm 4.2 - 5.9 / 3.9 - 5.3 cm LV Systolic Diameter PLAX 2.3 cm LV Chamber Size 4.2 cm IVS Diastolic Thickness 1.8 cm 0.6 - 1.0 / 0.6 - 0.9 cm IVS Systolic Thickness 2.7 cm LVPW Diastolic Thickness 2.8 cm 0.6 - 1.0 / 0.6 - 0.9 cm LVPW Systolic Thickness 3.0 cm RV Chamber Size 3.7 cm LVOT Diameter 2.1 cm LV Ejection Fraction 2D Teich 65.3 % LV Ejection Fraction MOD 2C 56.6 % LV Ejection Fraction 2C AL 56.7 % LA Diameter 3.5 cm Aorta at Sinotubular Diameter 3.0 cm DOPPLER AV Peak Velocity 147.0 cm/s LVOT Peak Velocity 100.0 cm/s AV Area Cont Eq vti 2.5 cm squared AV Area Cont Eq pk 2.3 cm squared MV Area PHT 4.8 cm squared Mitral E to A Ratio 0.9 MV E' Velocity 12.0 cm/s Mitral E to MV E' Ratio 6.1 Mitral E to LV E' Lateral Ratio 6.4 Mitral E to LV E' Septal Ratio 5.9 TR Peak Velocity 276.0 cm/s TR Peak Gradient 30.5 mmHg FINDINGS Left Ventricle Possibly normal LV size and ejection fraction. Segmental wall motion analysis difficult because of the poor ultrasonic window. Some features of grade 1 left ventricular diastolic dysfunction Right Ventricle Possibly normal size ejection fraction. Right Atrium Possibly of normal size Left Atrium Possibly of normal size Mitral Valve Mild mitral annular calcification. Valve leaflets could not visualized well. No gross abnormalities noted Aortic Valve Thickened aortic valve. Tricuspid Valve Tricuspid valve not well visualized. Pulmonic Valve Pulmonic valve not well visualized. Pericardium No pericardial effusion. Aorta Plaque seen in the ascending aorta. CONCLUSIONS Possibly normal LV size and ejection fraction. Segmental wall motion analysis difficult because of the poor ultrasonic window. Some features of grade 1 left ventricular diastolic dysfunction. Thickened aortic and mitral valves. Mitral valve leaflets could not visualized well. No gross abnormalities noted. There is no pericardial effusion. Technically difficult study because of poor ultrasonic window Dr Jenna Saenz MD FAC (Electronically Signed) Final Date: 12 January 2020 13:36 S
--- NOTE | 2020-01-12 18:38 | US_ITS ---
WS: [id number] INDICATION: Left-sided consolidation versus effusion TECHNIQUE: Ultrasound chest FINDINGS: Ultrasound left chest. No free fluid. US/US chest [id number] IMPRESSION: No free fluid.
[2020-01-13 18:03] LABS: Erythropoietin 8.3 mIU/mL (2.6-18.5)
== END 2020-01-12 14:37 | disposition home or self-care (01) | DRG 194 ==
LOC: ER 16:20 → MEDSURG 17:36
PROVIDERS: Emergency Medicine; Admitting Provider Student in an Organized Health Care Education/Training Program; PCP Family Medicine; Visit Provider Family Medicine
DX: J18.9 Pneumonia, unspecified organism (principal); J44.0 Chronic obstructive pulmonary disease with (acute) lower respiratory infection; J90 Pleural effusion, not elsewhere classified; Z68.41 Body mass index [BMI] 40.0-44.9, adult; I10 Essential (primary) hypertension; E11.9 Type 2 diabetes mellitus without complications; L30.9 Dermatitis, unspecified; Z79.52 Long term (current) use of systemic steroids; F41.9 Anxiety disorder, unspecified; I73.9 Peripheral vascular disease, unspecified; Z87.891 Personal history of nicotine dependence; R00.2 Palpitations; R09.02 Hypoxemia; Z79.4 Long term (current) use of insulin; D75.1 Secondary polycythemia; Z79.51 Long term (current) use of inhaled steroids; E66.9 Obesity, unspecified
CPT/HCPCS: 12345; 36415; 71045; 71275; 76604; 80053; 82668; 83036; 83540; 83550; 83880; 84145; 84443; 84484; 85025; 85378; 85610; 87040; 87426; 87641; 87804; 93005; 93306; 94640; 94664; 96372; 96375; 99283; J0360; J0456; J0696; J1650; J3490; J7030; J7050; J7626; Q0144; Q9967

== ENCOUNTER → 2020-01-22 12:06 | Outpatient (BNVA) | payer MEDICARE, OTHER, SELFPAY | PROVIDERS: PCP Family Medicine; Visit Provider Family Medicine | DX: E11.9 Type 2 diabetes mellitus without complications (principal); R09.02 Hypoxemia; I10 Essential (primary) hypertension; G47.30 Sleep apnea, unspecified; Z09 Encounter for follow-up examination after completed treatment for conditions other than malignant neoplasm; F41.1 Generalized anxiety disorder; D75.1 Secondary polycythemia; L20.82 Flexural eczema; Z68.41 Body mass index [BMI] 40.0-44.9, adult; F17.211 Nicotine dependence, cigarettes, in remission; Z71.89 Other specified counseling | CPT/HCPCS: 85025 ==

== ENCOUNTER 2020-01-30 08:51 | Outpatient (CLI) | payer MEDICARE, OTHER, SELFPAY ==
[2020-01-30 11:58] LABS: Basophils # 0.2 10^3/uL (0.0-0.1); Basophils % 1.2 %; Eosinophils # 0.4 10^3/uL (0.0-0.8); Eosinophils % 2.6 %; Hematocrit 55.6 % (42.0-52.0); Hemoglobin 17.4 g/dL (11.7-16.6); Lymphocytes % 7.1 %; Mean Corpuscular HGB Conc 31.3 g/dL (30.0-36.0); Mean Corpuscular Hemoglobin 30.2 pg (28.0-34.0); Mean Corpuscular Volume 96.5 fL (80-94); Mean Platelet Volume 10.5 fL (7.4-10.4); Monocytes # 1.1 10^3/uL (0.2-0.9); Monocytes % 8.4 %; Neutrophils # 10.67 10^3/uL (1.8-7.7); Neutrophils % 78.4 %; Nucleated Red Blood Cells % 0 %; Platelet Count 257 10^3/cmm (130-400); Red Blood Count 5.76 10^6/uL (4.1-5.3); Red Cell Distribution Width 13.5 % (12.1-15.1); White Blood Count 13.6 10^3/uL (4.0-10.0)
[2020-01-30 12:34] LABS: LAB Peripheral Smear Sent for Review
[2020-01-30 12:49] LABS: Alanine Aminotransferase 30 U/L (0-41); Alkaline Phosphatase 75 IU/L (40-130); Blood Urea Nitrogen 11 mg/dL (8-23); Calcium 8.9 mg/dL (8.5-10.5); Carbon Dioxide 35 mmol/L (22-29); Chloride 97 mmol/L (98-107); Globulin 3.5 g/dL (1.3-4.6); Glomerular Filtration Rate 74.5 mL/min (90-130); Glucose 157 mg/dL (65-115); Osmolality Calculated 289 mOsm/kg (285-295); Sodium 140 mmol/L (136-145); Total Bilirubin 0.4 mg/dL (0.15-1.2); Total Protein 7.5 g/dL (6.6-8.7)
[2020-01-30 13:00] LABS: Anion Gap 11.7 (5-19); Aspartate Amino Transferase 15 U/L (0-40); Lactate Dehydrogenase 285 U/L (135-225); Potassium 3.7 mmol/L (3.5-5.1)
[2020-01-30 13:02] LABS: Vitamin B12 309 pg/mL (232-1245)
[2020-01-30 13:09] LABS: Erythrocyte Sedimentation Rate 5 mm/hr (0-10)
--- NOTE | 2020-01-30 18:33 | ONC CON_ITS ---
Dr. Michael New Patient Note Patient: Zion Mishra Unit #: [id number]: 1950 Dicatated By: Kyler Michael M.D.Date of Visit: Jan 30, 2020 Onc MED New Patient/Consult Referring Physician: Dr. Annamaria Duke M.D. Chief Complaint: Elevated blood count. History of Present Illness: This is a 69 year-old man with significantly elevated hemoglobin/hematocrit levels. He also has mild leukocytosis. This patient has multiple medical illnesses including tension, obesity, and chronic lower extremity edema. He was recently diagnosed wit type II diabetes. He has suspected obstructive sleep apnea, for which he is currently undergoing evaluation. He has a chronic skin condition, for which he has been on low-dose prednisone therapy. I have asked to see him because of elevated blood counts. In reviewing his record in [facility], he has had consistently elevated hemoglobin/hematocrit levels dating back to November 2016. His hemoglobin has typically been in the range of 17 to 18 g. During that time he also has had mild leukocytosis. His platelet counts have consistently been normal. On 01/11/2020 he was admitted to the hospital with pneumonia. His CBC on 01/12/2020 showed his hemoglobin 18.4 g, white blood cell count 12,000, and platelet count 227,000. His erythropoietin level was in normal range at 8.3 mIU/mL. A repeat CBC on 01/22/2020 showed further increase in the hemoglobin to 18.9 g with hematocrit 58.8%. His white blood cell count was mildly elevated at 11,200. His platelet count was normal at 246,000. He says his energy is not that good. He has limited activity, but he is able to do some light work. His appetite is okay. He has had a weight gain of about 10 pounds during the past year. He has no fever or night sweats. He does complain of generalized itching, and he does have an associated skin eruption. He has some shortness of breath, and he also complains of having a problem with breathing while he is sleeping. He does not complain of cough, and he has not been having chest pain. The time of his recent hospital admission he was having a lot of skipped heartbeats, but that is not bothering him as much now. He currently has no GI complaints. He has urinary frequency and nocturia. He has no significant joint or bone pain. He does not complain of headache or dizziness. He has numbness in his feet. He has chronic anxiety. Past Medical History: His medical history includes anxiety, depression, eczema, hypertension, obesity, reflux esophagitis, type II diabetes, and venous insufficiency. He has a history of NSAID related GI bleeding. Past Surgical History: His surgical/procedural history includes cholecystectomy, cystoscopy/urethral dilitation, and umbilical hernia repair. Medications: ALPRAZolam 1 Tablet (of 1 mg) Oral t.i.d., cloNIDine HCl 1 Tablet (of 0.3 mg) Oral t.i.d., Doxepin HCl 1 Capsule (of 10 mg) Oral b.i.d., Furosemide 1 Tablet (of 40 mg) Oral daily, Metoprolol Tartrate 1 Tablet (of 50 mg) Oral b.i.d., NIFEdipine 1 Capsule (of 30 mg) Oral b.i.d., Potassium Chloride ER 1 Tablet (of 20 meq) Tablet, controlled release Oral b.i.d., predniSONE 1.5 Tablet Oral daily Allergies: No Known Allergies. Social History: Mr. Mishra is . He has a history of smoking 1 pack of cigarettes daily for 35 to 40 years. He quit smoking 12 years ago. He currently does not drink alcohol. He has had some alcohol use in the past, but never heavy. Family History: He may have had dementia. Mother at age 67, also with dementia. A brother age 42 with complications of drug abuse. A sister has been treated for breast cancer. A daughter of acute leukemia at age 23. Review Of Symptoms: Constitutional - His energy is not that great. He has limited activity. He is able to do light work. His appetite is good. He has had a weight gain of about 10 pounds over the past year. He does not have fever or night sweats. He does have generalized itching. ECOG score is 1, Eyes - No change in vision, ENMT - He has had some hearing loss. No tinnitus. He has sinus drainage. No mouth sores. No sore throat or difficulty swallowing, Hematologic/Lymphatic - No abnormal bruising or bleeding, Respiratory - He has some shortness of breath with activity. He does some problems breathing during sleep. He does not complain of cough. No pleuritic pain or hemoptysis, Cardiovascular - No angina pain. He recently was evaluated in the emergency room because of his heart skipping. That has improved, but he still has it occasionally. He has chronic swelling in his legs, Gastrointestinal - No nausea or vomiting. No heartburn or acid reflux. No diarrhea or constipation. No blood in the stool or black stools, Genitourinary (M) - No dysuria or hematuria. He has urinary frequency and nocturia. No urgency or incontinence, Musculoskeletal - He has no significant joint or bone pain, Integumentary - He has a fairly generalized skin eruption with itching, Neurologic - No headache or dizziness. He has numbness in his feet. No other focal neurologic symptoms, Psychiatric - He has anxiety. No depression. He has some difficulty sleeping due to breathing problems. Vital Signs: Performed on Jan 30, 2020 09:56: 0, 43.81 (HIGH), 2.61 sq.m, 72.00 in, 92 % (LOW), 90 /min, 24 /min, 178/97 mm(hg) (HIGH), 98.0 F (LOW), and 323.0 lbs (HIGH). Physical Examination: Constitutional - He appears somewhat weak generally, but not acutely ill, Eyes - Sclerae nonicteric. Conjunctivae clear, ENMT - No lesions noted in the oral cavity, Neck - No mass or thyromegaly, Hematologic/Lymphatic - No cervical, clavicular, or axillary adenopathy, Respiratory - Lungs are clear with some decrease in air movement bilaterally, Cardiovascular - Heart rhythm is regular. There is no murmur, gallop, or rub noted, Abdomen - Distended. There is a ventral hernia. Liver and spleen are not overtly enlarged. There is no abdominal mass or ascites noted and there is no inguinal adenopathy, Back/Spine - No spine or CVA tenderness noted, Extremities - There is 2+ lower extremity edema. Dorsalis pedis pulses are palpable bilaterally, Integumentary - There is patchy erythema over the face, trunk, and upper extremities. The skin is dry and somewhat thickened, particularly in the facial area. Over the dorsum of both feet there is a localized skin eruption which appears more consistent with eczema, Neurologic - No focal neurologic deficits noted. Impression: 1. Patient with significantly elevated hemoglobin/hematocrit levels. This is most likely due to secondary polycythemia, particularly with an erythropoietin level in normal range. A decreased plasma volume also could be a contributing factor. He also has mild leukocytosis, and polycythemia rubra vera does need to be excluded. 2. He has a generalized pruritic skin eruption. The cause is uncertain. I would like to exclude mycosis fungoides. His other medical illnesses include: 3. Obesity 4. Hypertension. 5. Chronic lower extremity edema. 6. He has suspected obstructive sleep apnea. 7. Chronic anxiety. Plan: The laboratory findings were reviewed with the patient and his . We discussed the clinical implications. His blood counts are significantly elevated, most likely due to secondary polycthemia with reactive leukocytosis. As a precaution, I will be checking a JAK2 gene mutation study to exclude polycythemia rubra vera. With this degree of elevation of his blood count, he would potentially benefit with phlebotomy, but with a target hematocrit of at least 50% or higher. As such, I will repeat his CBC today, and I also will check his CMP and LDH level and a B12 level. I will review the blood smear. In addition, I would like to have him see Dr. Dunn for evaluation of the skin eruption. Signed By: Kyler Michael M.D. <<Signature on File>>
[2020-02-05 22:57] LABS: CALR Exon 9 Mutation NOT DETECTED (NOT DETECTED); CSF3R Exon 14/17 Mutation NOT DETECTED (NOT DETECTED); JAK2 Exon 12 Mutation NOT DETECTED (NOT DETECTED); JAK2 V617 Block Specimen ID NG; JAK2 V617 Clinical Indication NG; JAK2 V617 Mutation NOT DETECTED (NOT DETECTED); JAK2 V617 Specimen Source NG; MPL Exon 12 Mutation NOT DETECTED (NOT DETECTED)
== END 2020-01-30 08:52 | disposition home or self-care (01) ==
PROVIDERS: PCP Family Medicine; Visit Provider Internal Medicine Medical Oncology
DX: D75.1 Secondary polycythemia (principal); R53.83 Other fatigue; R60.9 Edema, unspecified; D75.89 Other specified diseases of blood and blood-forming organs
CPT/HCPCS: 36415; 80053; 82607; 83615; 85025; 85651; 99205

== ENCOUNTER 2020-02-20 10:46 | Outpatient (CLI) | payer MEDICARE, OTHER, SELFPAY ==
[2020-02-20 11:19] LABS: Basophils # 0.1 10^3/uL (0.0-0.1); Basophils % 1.2 %; Eosinophils # 0.6 10^3/uL (0.0-0.8); Eosinophils % 5.6 %; Hematocrit 55.5 % (42.0-52.0); Hemoglobin 17.3 g/dL (11.7-16.6); Lymphocytes # 1.6 10^3/uL (0.8-4.8); Lymphocytes % 16.1 %; Mean Corpuscular HGB Conc 31.2 g/dL (30.0-36.0); Mean Corpuscular Hemoglobin 30.3 pg (28.0-34.0); Mean Corpuscular Volume 97.2 fL (80-94); Mean Platelet Volume 9.9 fL (7.4-10.4); Neutrophils # 6.32 10^3/uL (1.8-7.7); Neutrophils % 64.8 %; Nucleated Red Blood Cells % 0 %; Platelet Count 222 10^3/cmm (130-400); Red Blood Count 5.71 10^6/uL (4.1-5.3); Red Cell Distribution Width 13.6 % (12.1-15.1); White Blood Count 9.8 10^3/uL (4.0-10.0)
== END 2020-02-20 10:47 | disposition home or self-care (01) ==
LOC: ONCMED 10:50
PROVIDERS: PCP Family Medicine; Visit Provider Internal Medicine Medical Oncology
DX: D75.1 Secondary polycythemia (principal)
CPT/HCPCS: 85025

== ENCOUNTER → 2020-03-04 12:15 | Outpatient (BNVA) | payer MEDICARE, OTHER, SELFPAY | PROVIDERS: PCP Family Medicine; Visit Provider Dermatology | DX: D48.9 Neoplasm of uncertain behavior, unspecified (principal) | CPT/HCPCS: 88304 ==

== ENCOUNTER 2020-03-15 06:04 | Outpatient (CLI) | payer MEDICARE, OTHER, SELFPAY ==
[2020-03-15 15:24] LABS: Basophils # 0.1 10^3/uL (0.0-0.1); Basophils % 1.1 %; Eosinophils # 0.5 10^3/uL (0.0-0.8); Eosinophils % 5.8 %; Hemoglobin 16.4 g/dL (11.7-16.6); Lymphocytes # 1.3 10^3/uL (0.8-4.8); Lymphocytes % 15.1 %; Mean Corpuscular HGB Conc 30.9 g/dL (30.0-36.0); Mean Corpuscular Hemoglobin 30.4 pg (28.0-34.0); Mean Corpuscular Volume 98.1 fL (80-94); Mean Platelet Volume 10.4 fL (7.4-10.4); Monocytes # 0.7 10^3/uL (0.2-0.9); Monocytes % 8.2 %; Neutrophils # 6.09 10^3/uL (1.8-7.7); Neutrophils % 68.8 %; Nucleated Red Blood Cells % 0 %; Platelet Count 238 10^3/cmm (130-400); Red Cell Distribution Width 13.4 % (12.1-15.1); White Blood Count 8.9 10^3/uL (4.0-10.0)
== END 2020-03-15 06:05 | disposition home or self-care (01) ==
LOC: ONCMED 06:05
PROVIDERS: PCP Family Medicine; Visit Provider Internal Medicine Medical Oncology
DX: D75.1 Secondary polycythemia (principal)
CPT/HCPCS: 85025; 99195

== ENCOUNTER → 2020-04-13 10:54 | Outpatient (BNVA) | payer MEDICARE, OTHER, SELFPAY | PROVIDERS: PCP Family Medicine; Visit Provider Family Medicine | DX: E11.9 Type 2 diabetes mellitus without complications (principal); D75.1 Secondary polycythemia; I10 Essential (primary) hypertension; F41.1 Generalized anxiety disorder; L20.82 Flexural eczema | CPT/HCPCS: 80053; 83036; 85025 ==